=== PATIENT | female | born 1940 | race Caucasian/White ===

== ENCOUNTER 2018-01-30 19:16 | Emergency (ER) | payer OTHER ==
--- NOTE | 2018-01-30 19:40 | PDOC ---
History of Present Illness - General History Source: Patient Exam Limitations: No Limitations <Fauzia Rainey - Last Filed: 01/30/18 20:43> <Elsa Redman - Last Filed: 01/31/18 04:34> - General Chief Complaint: Syncope/Near Syncope Stated Complaint: SYNCOPE Time Seen by Provider: 01/30/18 19:21 - History of Present Illness Initial Comments: 01/30/18 20:41 The patient is a 78 year old female, with significant past medical history of thyroidism, GERD, who presents to the emergency department today s/p syncopal episode today at approximately 10:15 am while on a flight home from [facility]. The patient states that she started to feel hot and sweaty, began fanning herself, then awoke on the floor. When the plane landed, the attendants administered oxygen. She then reports having a sudden bowel movement. Denies bloody or tarry stools. She notes 1 episode of bilious vomiting after the syncopal episode this morning. The patient notes that she experienced many syncopal episodes similar to this one over the past 8 years where she becomes hot and sweaty then has exploding bowels. She denies any complaints at this time, but notes that she feels very tired. Denies chest pain, SOB. Denies dizziness, lightheadedness. Denies fever, chills. Denies leg swelling. Allergies: NKA Surgical history: Appendectomy, TKR 5 years ago, shoulder surgery 5, trigger finger surgery 08/07/17, Social Hx: Pt lives in [place] with one of her daughters. She is visiting another daughter here in [place] on her way back from vacation. PCP: Located in [place]. (Fauzia Rainey) Past History <Fauzia Rainey - Last Filed: 01/30/18 20:43> - Past Medical History COPD: No GI Disorders: Yes (GERD) Seizures: Yes - Suicide/Smoking/Psychosocial Hx Smoking History: Never smoked Have you smoked in the past 12 months: No Information on smoking cessation initiated: No Hx Alcohol Use: No Drug/Substance Use Hx: No Substance Use Type: None <Elsa Redman - Last Filed: 01/31/18 04:34> - Past Medical History Allergies/Adverse Reactions: Allergies Allergy/AdvReac Type Severity Reaction Status Date / Time No Known Allergies Allergy Verified 01/30/18 19:20 Home Medications: Ambulatory Orders Acetaminophen [Tylenol -] 1,000 mg PO DAILY 01/30/18 Lansoprazole [Prevacid] 30 mg PO DAILY 01/30/18 Levothyroxine [Synthroid -] 125 mcg PO DAILY 01/30/18 Review of Systems - Review of Systems Able to Perform ROS?: Yes <Fauzia Rainey - Last Filed: 01/30/18 20:43> <Elsa Redman - Last Filed: 01/31/18 04:34> - Review of Systems Comments:: 01/30/18 20:42 GENERAL/CONSTITUTIONAL: No fever or chills. No weakness. HEAD, EYES, EARS, NOSE AND THROAT: No change in vision. No ear pain or discharge. No sore throat. CARDIOVASCULAR: No chest pain or shortness of breath. RESPIRATORY: No cough, wheezing, or hemoptysis. GASTROINTESTINAL: +vomiting. No nausea,, diarrhea or constipation. GENITOURINARY: No dysuria, frequency, or change in urination. MUSCULOSKELETAL: No joint or muscle swelling or pain. No neck or back pain. SKIN: No rash NEUROLOGIC: +syncopal episode. No headache, vertigo, or change in strength/ sensation. ENDOCRINE: No increased thirst. No abnormal weight change. HEMATOLOGIC/LYMPHATIC: No anemia, easy bleeding, or history of blood clots. ALLERGIC/IMMUNOLOGIC: No hives or skin allergy. (Fauzia Rainey) *Physical Exam <Fauzia Rainey - Last Filed: 01/30/18 20:43> <Elsa Redman - Last Filed: 01/31/18 04:34> - Vital Signs Last Vital Signs Temp Pulse Resp BP Pulse Ox 97.9 F 66 20 151/89 99 01/30/18 19:19 01/30/18 19:19 01/30/18 19:19 01/30/18 19:19 01/30/18 19:19 - Physical Exam Comments: 01/30/18 20:42 GENERAL: Awake, alert, and fully oriented, in no acute distress HEAD: No signs of trauma EYES: PERRLA, EOMI, sclera anicteric, conjunctiva clear ENT: Auricles normal inspection, hearing grossly normal, nares patent, oropharynx clear without exudates. +dry mucous membranes. NECK: Normal ROM, supple, no lymphadenopathy, JVD, or masses LUNGS: Breath sounds equal, clear to auscultation bilaterally. No wheezes, and no crackles HEART: Regular rate and rhythm, normal S1 and S2, no murmurs, rubs or gallops ABDOMEN: Soft, nontender, normoactive bowel sounds. No guarding, no rebound. No masses EXTREMITIES: Normal range of motion, no edema. No clubbing or cyanosis. No cords, erythema, or tenderness NEUROLOGICAL: Cranial nerves II through XII grossly intact. Normal speech, normal gait SKIN: Warm, Dry, normal turgor, no rashes or lesions noted. (Fauzia Rainey) ED Treatment Course - LABORATORY CBC & Chemistry Diagram: 01/30/18 20:05 01/30/18 20:13 <Fauzia Rainey - Last Filed: 01/30/18 20:43> - LABORATORY CBC & Chemistry Diagram: 01/30/18 20:05 01/30/18 20:13 <Elsa Redman - Last Filed: 01/31/18 04:34> - ADDITIONAL ORDERS Additional order review: Laboratory Results 01/30/18 01/30/18 01/30/18 20:13 20:13 20:13 Sodium 139 Potassium 4.2 Chloride 107 Carbon Dioxide 24 Anion Gap 8 BUN 30 H Creatinine 1.3 Creat Clearance w eGFR 39.51 Random Glucose 138 H Calcium 9.1 Total Bilirubin 1.0 AST 23 ALT 20 Alkaline Phosphatase 116 H Creatine Kinase 136 Troponin I < 0.03 Total Protein 7.3 Albumin 4.4 Urine Color Yellow Urine Appearance Clear Urine pH 5.0 Ur Specific Speer 1.020 Urine Protein Trace Urine Glucose (UA) Negative Urine Ketones Negative Urine Blood Negative Urine Nitrite Negative Urine Bilirubin Negative Urine Urobilinogen 0.2 Ur Leukocyte Esterase Trace H Urine RBC 0-2 Urine WBC 2-5 Urine Bacteria Few 01/30/18 20:05 RBC 4.55 MCV 89.3 MCHC 33.5 RDW 14.4 MPV 9.2 Neutrophils % 83.3 H Lymphocytes % 10.9 Monocytes % 5.0 Eosinophils % 0.5 Basophils % 0.3 - Medications Given in the ED: ED Medications Discontinued Medications Generic Name Dose Route Start Last Admin Trade Name Freq PRN Reason Stop Dose Admin Sodium Chloride 1,000 mls @ 1,000 mls/hr 01/30/18 21:03 01/30/18 21:07 Normal Saline - IV 01/30/18 22:02 1,000 mls/hr ASDIR STA Administration Medical Decision Making <Young Raineyssica - Last Filed: 01/30/18 20:43> <Elsa Redman - Last Filed: 01/31/18 04:34> - Medical Decision Making Documentation has been prepared under my direction and personally reviewed by me in its entirety. I attest that this documented accurately reflects all work, treatment, procedures and medical decision making performed by me. As noted above, this 78-year-old woman with a history of hypothyroidism and frequent syncopal episodes presents with history of syncope while traveling home from [facility] earlier today. Circumstances of her syncopal episode as noted above, were extremely typical of her previous episodes. For the remainder of the day today, other than some fatigue, she had no acute symptoms. Of note, the patient informed us that she has had an atypical EKG for many years featuring an abnormal "blip". She states that the emergency rooms where she presents initially believe that she has cardiac abnormalities until they see her previous EKG in which the abnormality is present. Exam as noted 12-lead electrocardiogram interpreted by me: Normal sinus rhythm at 66 bpm, there is left axis deviation; there are T-wave inversions V4 V5 and V6. No other acute ST or T wave abnormality seen. Laboratory values notable for BUN/creatinine of 30/1.3, mildly elevated wbc's of 10,900, slightly elevated random glucose and nonelevated troponin (less than 0.03) Patient received 1 L normal saline IV. Patient continued to be asymptomatic and comfortable. Clinical presentation most consistent with a vasovagal episode secondary to dehydration and increased vagal tone secondary to gastrointestinal hyperactivity. Patient will be discharged in the company of her daughters who live locally. The patient will stay in the area for the next few days and then traveled back to [place]. She should follow-up with her medical doctor when she returns to [place]. Meanwhile, she should return to the emergency room immediately if she has any weakness/lightheadedness or chest pain /shortness of breath/palpitations (Elsa Redman) *DC/Admit/Observation/Transfer <Fauzia Rainey - Last Filed: 01/30/18 20:43> <Elsa Redman - Last Filed: 01/31/18 04:34> Diagnosis at time of Disposition: Vasovagal episode, Dehydration - Discharge Dispostion Disposition: HOME Condition at time of disposition: Stable - Patient Instructions Printed Discharge Instructions: DI for Syncope in Adults (Fainting) Additional Instructions: continue to drink plenty of fluids continue medications as prescribed return to ER immediately if you have severe lightheadedness/chest pain/ shortness of breath followup with your doctor when you return home to [place] - Attestations Scribe Attestion: 01/30/18 20:42 Documentation prepared by LONNIE Rodriges, acting as medical record specialist for Elsa Redman MD. (Fauzia Rainey)
[2018-01-30 20:17] VITALS: BP 151/89; PULSE 66; TEMP 97.9; BMI 23.1
[2018-01-30 20:19] LABS: URINE APPEARANCE Clear; URINE BILIRUBIN Negative (NEGATIVE); URINE COLOR Yellow; URINE GLUCOSE (UA) Negative (NEGATIVE); URINE KETONE Negative (NEGATIVE); URINE NITRITE Negative (NEGATIVE); URINE PROTEIN Trace (NEGATIVE); URINE UROBILINOGEN 0.2 (0.2-1.0)
[2018-01-30 20:26] LABS: URINE LEUK ESTERASE TRACE (NEGATIVE)
[2018-01-30 20:34] LABS: URINE BACTERIA FEW /hpf (NEGATIVE); URINE RBC 0-2 /hpf (0-3)
[2018-01-30 20:40] LABS: ALBUMIN 4.4 g/dl (3.5-5.0); ALK PHOS 116 U/L (32-92); ANION GAP 8 MMOL/L (8-16); BLOOD UREA NITROGEN 30 mg/dl (7-18); CALCIUM 9.1 mg/dl (8.4-10.2); CHLORIDE 107 mmol/L (98-107); CO2 24 mmol/L (22-28); CREATININE 1.3 mg/dl (0.6-1.3); GLUCOSE,RANDOM 138 mg/dl (74-106); POTASSIUM 4.2 mmol/L (3.5-5.1); SGOT/AST 23 U/L (10-42); SGPT/ALT 20 U/L (10-40); SODIUM 139 mmol/L (136-145); TOT PROT 7.3 g/dl (6.4-8.3)
[2018-01-30 21:01] LABS: BASO % 0.3 % (0-2.0); EOS % 0.5 % (0-4.5); HEMATOCRIT 40.6 % (32.4-45.2); HEMOGLOBIN 13.6 GM/dL (10.7-15.3); LYMPH % 10.9 % (8-40); MCH 29.9 pg (25.7-33.7); MCHC 33.5 g/dl (32.0-36.0); MEAN CELL VOLUME 89.3 fl (80-96); MEAN PLT VOLUME 9.2 fl (7.5-11.1); NEUT % 83.3 % (42.8-82.8); PLATELET COUNT 201 K/MM3 (134-434); RBC 4.55 M/mm3 (3.60-5.2); RDW 14.4 % (11.6-15.6); WHITE BLOOD COUNT 10.9 K/mm3 (4.0-10.0)
[2018-01-30] MEDS ORDERED: SODIUM CHLORIDE 1,000 ML IV STA (21:03)
--- NOTE | 2018-01-31 23:23 | EKG ---
Test Reason : Blood Pressure : / mmHG Vent. Rate : 066 BPM Atrial Rate : 066 BPM P-R Int : 142 ms QRS Dur : 096 ms QT Int : 432 ms P-R-T Axes : 020 -39 052 degrees QTc Int : 452 ms NORMAL SINUS RHYTHM LEFT AXIS DEVIATION T WAVE ABNORMALITY, CONSIDER ANTEROLATERAL ISCHEMIA ABNORMAL ECG NO PREVIOUS ECGS AVAILABLE Confirmed by IMELDA SANCHEZ MD ([id number]) on 01/31/2018 11:22:39 PM Referred By: DR GRESHAM Confirmed By:IMELDA SANCHEZ MD
== END 2018-01-30 22:18 | disposition home or self-care (01) ==
LOC: FER 19:16
PROC: 3E0337Z Introduction of Electrolytic and Water Balance Substance into Peripheral Vein, Percutaneous Approach (ICD-10-PCS; principal; 2018-01-30)
DX: R55 Syncope and collapse (principal); E86.0 Dehydration; E07.9 Disorder of thyroid, unspecified; K21.9 Gastro-esophageal reflux disease without esophagitis; R56.9 Unspecified convulsions
CPT/HCPCS: 36415; 80053; 81003; 81015; 82550; 84484; 85025; 93005; 96360; 99282-25; J7030